=== PATIENT | male | born 1975 | race Caucasian/White ===

== ENCOUNTER 2017-01-19 12:27 | Emergency (ER) | payer OTHER ==
[~2017-01-19 12:27] MED LIST: ACCUPRIL20 M1 PO; ACCUPRIL40 M1 PO; ACCUPRIL40 MG PO; ACTOPLUS MET 151 TA; ASPIRIN EC325 M1 PO; ASPIRIN81 M1 PO; BAYER81 MG; BYETTA10 MCG/0.0; CLARITIN10 MG; CRESTOR10 MG/TAB PO; CRESTOR20 MG PO; CRESTOR20 MG/TAB PO; FARXIGA10 M1 PO; FIBER PO; FISH OIL 1,2001 CAP PO; FLECAINIDE ACET50 M1 PO; FLEXERIL10 MG PO; FUROSEMIDE20 M1 PO; GLIMEPIRIDE4 MG; GLIMEPIRIDE4 MG PO; GLUCOPHAGE1000 M1 PO; GLUCOPHAGE1000 MG PO; HUMALOG100 U/ML SQ; HUMALOG100 UNITS/ SC; K-TAB ER20 ME1 PO; LANTUS100 U/ML SC; LASIX40 M1 PO; LEVAQUIN750 MG PO; LOPERAMIDE2 M2 PO; MULTIVITAMIN1 TAB PO; OMEGA-3 + VITA1 EAC2 PO; POTASSIUM CHLO10 ME1 PO; PREDNISONE20 MG PO; PROMETHAZINE12.5 M2 PO; ULTRAM; VICTOZA 3-0.6 MG/0.2 SC; VICTOZA0.6 MG/0.1 SQ; VITAMIN D-32000 UNI4 PO; VITAMIN D1000 UNI3 PO; VYTORIN 10/20 T1 TAB; VYVANSE30 M1 PO; ZOFRAN4 MG PO; ZOLOFT50 M1 PO; ZOLOFT50 MG
[2017-01-19] MEDS ORDERED: ACCUPRIL40 M1 PO (12:51)
[2017-01-19] MEDS ORDERED: HUMULIN R500 UNIT/1 SC (12:55)
[2017-01-19 13:32] LABS: URINE LEUKOCYTE ESTERASE NEGATIVE (NEG); URINE PROTEIN SMALL (NEG)
[2017-01-19 13:34] LABS: URINE APPEARANCE CLEAR; URINE BILIRUBIN NEGATIVE (NEG); URINE BLOOD SMALL (NEG); URINE COLOR YELLOW; URINE GLUCOSE (UA) LARGE (NEG); URINE KETONE NEGATIVE (NEG); URINE NITRITE NEGATIVE (NEG)
[2017-01-19] MEDS ORDERED: VITAMIN D32000 UNI2 PO (13:41)
[2017-01-19 13:43] LABS: BASO % 0.3 % (0-2); EOS % 2.7 % (0-7); EOSINOPHIL ABSOLUTE COUNT 0.2 tho/cmm (0.0-0.7); HCT-HEMATOCRIT 41.8 % (36.0-53.5); HGB-HEMOGLOBIN 14.4 gm/dl (13.5-17.0); IMMATURE GRANULOCYTES ABSOLUTE 0.05 tho/cmm (0-0.03); IMMATURE GRANULOCYTES PERCENT 0.6 % (0-0.3); LYMPH % 28.1 % (20-45); LYMPH ABSOLUTE COUNT 2.2 tho/cmm (0.8-4.5); MCH (MEAN CORPUSCULAR HGB) 29.4 pg (28.0-32.0); MCHC MEAN CORPUSCULAR HGB CONC 34.4 % (32.0-36.0); MCV (MEAN CELL VOLUME) 85.3 fl (82.0-96.0); MEAN PLATELET VOLUME 10.9 cmc (9.4-12.4); MONO % 7.6 % (0-12); MONOCYTE ABSOLUTE COUNT 0.6 tho/cmm (0.0-1.2); NEUTROPHIL ABSOLUTE COUNT 4.7 tho/cmm (1.6-8.0); NEUTROPHIL-AUTOMATED 4.7 tho/cmm (1.6-8.0); NEUTROPHILS % 60.7 % (40-80); PLATELET COUNT 198 tho/cmm (150-450); RED CELL DISTRIBUTION WIDTH 13.7 % (12.4-16.4); WHITE BLOOD COUNT 7.8 tho/cmm (4.0-10.0)
[2017-01-19 13:45] LABS: KETONE-BETA (WHOLE BLOOD) <0.1 mmol/L (0.0-0.6)
[2017-01-19 13:59] LABS: AMYLASE 180 U/L (20-90); ANION GAP 13 mmol/L (0-20); BLOOD UREA NITROGEN 12 mg/dl (6-24); CALCIUM 8.6 mg/dl (8.5-10.5); CARBON DIOXIDE-VENOUS 24 mmol/L (22-32); CHLORIDE 106 mmol/l (96-110); CREATININE 0.75 mg/dl (0.60-1.30); GLUCOSE 213 mg/dL (70-110); POTASSIUM 3.9 mmol/L (3.7-5.1); SODIUM 139 mmol/L (135-145); eGFR VALUE FOR BLACK >90 mL/Min
[2017-01-19 13:59] LABS: URINE WBC 0 /[HPF] (0-5)
[2017-01-19 14:00] LABS: URINE EPITHELIAL CELLS 0-1 /[HPF] (0-10); URINE RBC 0-2 /[HPF] (0-5)
[2017-01-19 14:02] LABS: LIPASE 3901 U/L (73-393)
[2017-01-19 15:02] LABS: ALB/GLOB RATIO 0.7 (0.8-2.0); ALBUMIN 3.2 g/dl (3.5-5.0); ALKALINE PHOSPHATASE 117 U/L (33-138); ALT/SGPT 30 U/L (12-78); BILIRUBIN,TOTAL 0.4 mg/dl (0.0-1.5)
[2017-01-19 15:04] LABS: AST/SGOT 27 U/L (10-40); BILIRUBIN,DIRECT <0.1 mg/dl (0.0-0.3); BILIRUBIN,INDIRECT 0.3 mg/dL (0.0-1.0)
== END 2017-01-19 17:25 ==
LOC: EDMED 12:27
PROVIDERS: Physician Assistant
DX: K82.9 Disease of gallbladder, unspecified (principal); E11.9 Type 2 diabetes mellitus without complications; Z79.4 Long term (current) use of insulin; Z88.0 Allergy status to penicillin; Z98.890 Other specified postprocedural states
CPT/HCPCS: J2405; J7030